=== PATIENT | male | born 1975 | race Two or more races ===

== ENCOUNTER 2024-10-17 15:46 | Emergency (ER) | payer OTHER ==
[~2024-10-17] VITALS: Ht 165.1 cm; Wt 77.1 kg
[~2024-10-17 15:46] MED LIST: ZANTAC300 MG
[2024-10-17 16:46] LABS: BASO % 0.3 % (0.1-1.2); EOS # 0.06 (0.04-0.54); EOS % 0.9 % (0.7-7.0); HEMATOCRIT 45.3 % (40.1-51.0); HEMOGLOBIN 15.4 g/dL (13.7-17.5); LYMPH # 1.67 (1.18-3.74); LYMPH % 23.7 % (19.3-53.1); MEAN CORPUSCULAR HEMOGLOBIN 28.8 pg (25.6-32.2); MONO # 1.09 (0.24-0.82); NEUT % 59.5 % (34.0-71.1); PLATELET COUNT 232 K/uL (163-369); RED BLOOD COUNT 5.35 M/uL (4.63-6.08); RED CELL DISTRIBUTION WIDTH 11.9 % (11.6-14.4)
[2024-10-17 16:57] LABS: MONO % 15.5 % (4.7-12.5)
[2024-10-17 17:04] LABS: COVID-19 AG NEGATIVE (NEGATIVE)
[2024-10-17 17:05] LABS: INFLUENZA A AG NEGATIVE (NEGATIVE)
[2024-10-17 17:06] LABS: INFLUENZA B AG POSITIVE (NEGATIVE)
== END 2024-10-17 17:20 | disposition home or self-care (01) ==
LOC: ER 15:46
PROVIDERS: General Practice
DX: J10.1 Influenza due to other identified influenza virus with other respiratory manifestations (principal); Z20.822 Contact with and (suspected) exposure to COVID-19

== ENCOUNTER → 2024-11-30 | Emergency (ER) | payer OTHER ==
[~2024-11-30] VITALS: Ht 167.6 cm; Wt 81.2 kg
[~2024-11-30] MED LIST changes: +0.9 % SODIUM CHLORIDE 1,000 ML IV ONE; +AMOX-CLAV 875-1 EAC1 PO; +GUAIFENESIN/DEXTROMETHORPHAN 100MG/10ML BLIST.PACK PO ONE; +INTESTINEX680 M1 PO; +OSEL75CA PO; +PEPCID AC20 MG PO; +TUSSIN DM LIQU118 ML PO; +ZITHROMAX500 MG PO
[2024-11-30 16:52] LABS: BASO % 0.3 % (0.1-1.2); EOS # 0.14 (0.04-0.54); EOS % 1.2 % (0.7-7.0); LYMPH # 2.17 (1.18-3.74); LYMPH % 19.2 % (19.3-53.1); MEAN PLATELET VOLUME 10.80 fl (9.4-12.4); MONO # 1.05 (0.24-0.82); MONO % 9.3 % (4.7-12.5); NEUT # 7.86 (1.56-6.13); NEUT % 69.7 % (34.0-71.1); RED CELL DISTRIBUTION WIDTH 12.0 % (11.6-14.4)
[2024-11-30 17:10] LABS: COVID-19 AG POSITIVE (NEGATIVE)
[2024-11-30 17:21] LABS: ALT/SGPT 60.0 U/L (12-78); AST/SGOT 22.0 U/L (15-37); BILIRUBIN TOTAL 0.41 mg/dL (0.3-1.2); BUN CREA RATIO 16.0 (7.0-25.0); CREATININE SERUM 0.95 mg/dL (0.70-1.30); GFR 84.98; GLOBULINA 4.3 G/DL (2.4-3.5); GLUCOSE FASTING 93.0 mg/dL (65-100); OSMOLALITY SERUM 278.0 MOSM/KG (275-295)
== END | disposition home or self-care (01) ==
LOC: ER 12:48
PROVIDERS: General Practice
DX: U07.1 COVID-19 (principal); J10.1 Influenza due to other identified influenza virus with other respiratory manifestations; J01.00 Acute maxillary sinusitis, unspecified; Z88.8 Allergy status to other drugs, medicaments and biological substances